=== PATIENT | male | born 1955 | race Caucasian/White ===

== ENCOUNTER 2022-07-12 19:38 | Emergency (ER) | payer OTHER, SELFPAY ==
[2022-07-12 19:50] VITALS: BP 156/70; PULSE 77; RESP 18; TEMP 36.2; O2SAT 95
--- NOTE | 2022-07-12 20:38 | DI.US.S_ITS ---
PROCEDURE: US PERIPH VENOUS LOW EXTREM RT INDICATIONS: SWELLING TECHNIQUE: Real-time imaging, as well as color and pulse Doppler interrogation, were performed of the lower extremity deep veins from the inguinal ligament to the popliteal fossa. COMPARISON: None. FINDINGS: The common femoral, femoral and popliteal veins are normally compressible, and free of intraluminal thrombus. Color and pulse Doppler demonstrate normal phasic intraluminal flow. There is normal augmentation response to distal compression maneuver. There are enlarged right inguinal lymph nodes measuring up to 1.1 cm in short axis with preserved fatty elena. Findings are nonspecific but likely reactive. IMPRESSION: 1. No evidence of deep venous thrombosis in the right lower extremity. Dictated by: Bala Ceja M.D. on 07/12/2022 at 23:47 Approved by: Bala Ceja M.D. on 07/12/2022 at 23:48
--- NOTE | 2022-07-12 20:55 | ED.SKABFB ---
HPI - Skin/Abscess/Foreign Bdy General Chief complaint: Skin/Abscess/Foreign Body Stated complaint: RIGHT LEG CELLULITIS Time Seen by Provider: 07/12/22 20:50 Source: patient Mode of arrival: Ambulatory Limitations: no limitations History of Present Illness HPI narrative: Patient drove himself here. Once re-evaluation of his right leg. He was wondering if there was a blood clot in there. He was seen at walk-in clinic [facility] 4 days ago and placed on Keflex. He takes it 4 times a day. He states the redness has improved a lot. The swelling has come down. The pain has improved. He is never had this before. He has brown discoloration to his both legs which are not new. That is chronic. No previous history of cellulitis. Denies any diabetes. No injury to skin. No blood clots in legs or lungs in the past. No chest pain or dyspnea. No palpitations. Patient in no distress. Related Data Home Medications Medication Instructions Recorded Confirmed HYDROCHLOROTHIAZIDE (Hydrodiuril / 25 mg PO QDAY ##0 04/15/10 Hctz) LISINOPRIL (Zestril / Prinivil) 20 mg PO QDAY ##0 04/15/10 Allergies Allergy/AdvReac Type Severity Reaction Status Date / Time INGREDIENT: NKDA - NO KNOWN Allergy Unknown Uncoded 12/24/17 11:48 DRUG ALLERGIES Review of Systems Review of Systems Narrative: GENERAL: Denies chills, fatigue, malaise, fever, sweats. HEENT: Denies sinus pain, ear pain, sore throat RESPIRATORY: Denies dyspnea, cough CARDIOVASCULAR: Denies chest pain, palpitations GASTROINTESTINAL: Denies nausea, vomiting, abdominal pain : Denies dysuria, frequency, hematuria MUSCULOSKELETAL: denies muscle or bony pain SKIN: Denies rash, skin lesions, positive skin color change NEUROLOGIC: Denies weakness, numbness ROS Unobtainable: All systems reviewed & are unremarkable except as noted in HPI and below Patient History Social History Smoking Status: Current every day smoker Smoking Status: Current every day smoker alcohol intake frequency: a few times a month Substance Use Type: heroin Exam Narrative Exam Narrative: GENERAL: in no distress, not toxic not dyspneic HEAD: Normocephalic. EYES: Pupils equal round No scleral icterus. ENT: Mucous membranes moist. NECK: Trachea midline. CARDIOVASCULAR: Regular rate and rhythm without murmurs RESPIRATORY: Clear to auscultation. Breath sounds equal bilaterally. No wheezes, rales, or rhonchi. EXTREMITIES: No gross deformities. Examination right lower extremity. Knee to toes exposed. Foot warm soft and pink strong pedal pulse. There is diffuse edema of the calf and leg. There is light erythema with mild tenderness to the anterior and posterior calf. Inked margins were drawn yesterday. No redness has extended past the inked margins. Strong pedal pulse light touch intact to foot and toes. No necrosis no necrotic tissue. No ulcerations. No palpable masses or abscess. No palpable cords. BACK: No flank tenderness. NEURO: AOx4. SKIN: Warm and dry PSYCH: Not anxious, is cooperative Initial Vital Signs Initial Vital Signs: Vital Signs Temperature 97.2 F L 07/12/22 19:50 Pulse Rate 77 07/12/22 19:50 Respiratory Rate 18 07/12/22 19:50 Blood Pressure 156/70 H 07/12/22 19:50 Pulse Oximetry 95 07/12/22 19:50 Oxygen Delivery Method 07/12/22 19:50 Course Course Course Narrative: No new issues during course of stay Orders Ordered: ED Orders 07/12/22 20:38 US periph venous low extrem rt Stat Reevaluation(s) Reevaluation #1: Reviewed with patient, agrees no blood work indicated this time. He has no fever. His cellulitis is improving with Keflex. No changes in his medications at this time. Time: 00:06 Vital Signs Vital signs: Vital Signs - 8 hr 07/12/22 19:50 07/12/22 23:59 Temperature 97.2 F L Pulse Rate 77 66 Respiratory Rate 18 Blood Pressure 156/70 H 169/79 H Pulse Oximetry 95 100 Oxygen Delivery Method Room Air Room Air MDM - Skin/Abscess/Foreign Bdy Differential Diagnosis Differential diagnosis: Likely abscess of skin or subcutaneous tissue, cellulitis and other (DVT/SVT) Imaging Data US - DVT: Radiologist's Impression: [address] [address] Ultrasound Report Signed Patient: Chicho Crowley MR#: [id number] : 1955 Acct:[id number] Age/Sex: 66 / M Date of Service: 07/12/22 Loc: ED Accession Number: [id number] ?? Procedure: US periph venous low extrem rt Ordering Provider: Bradley Britton MD PROCEDURE:? US PERIPH VENOUS LOW EXTREM RT ? INDICATIONS:? SWELLING ? TECHNIQUE:? Real-time imaging, as well as color and pulse Doppler interrogation, were performed of the lower extremity deep veins from the inguinal ligament to the popliteal fossa.? ? COMPARISON:? None. ? FINDINGS:? The common femoral, femoral and popliteal veins are normally compressible, and free of intraluminal thrombus.? Color and pulse Doppler demonstrate normal phasic intraluminal flow.? There is normal augmentation response to distal compression maneuver. ? ? There are enlarged right inguinal lymph nodes measuring up to 1.1 cm in short axis with preserved fatty elena.? Findings are nonspecific but likely reactive.? ? IMPRESSION:? ? 1.? No evidence of deep venous thrombosis in the right lower extremity. ? ? Dictated by: Bala Ceja M.D. on 07/12/2022 at 23:47 ? ? Approved by: Bala Ceja M.D. on 07/12/2022 at 23:48 ? MDM Narrative Medical decision making narrative: Appropriate for discharge home. Exam reassuring. Ultrasound reassuring. Patient is improving with Keflex. Appropriate to continue this medication. No changes needed. No blood work indicated. Return precautions reviewed with him. He desires discharge home. Pain controlled at the time of discharge. Discharge Plan Departure Patient Disposition: Home Clinical Impression: Cellulitis Instructions: DI for Cellulitis -- Adult Activity Restrictions/Additional Instructions: Return if worse if any questions or concerns. Please to continue and complete the antibiotics that were prescribed to you earlier this week. See your family doctor this upcoming week for re-evaluation. Return if worse if any questions or concerns. Call provided primary care referral phone number to establish family doctor. Call [phone] Prescriptions: No Action HYDROCHLOROTHIAZIDE (Hydrodiuril / Hctz) 25 mg PO QDAY Qty: 0 LISINOPRIL (Zestril / Prinivil) 20 mg PO QDAY Qty: 0 Visit Report Forms: Patient Portal/API
[2022-07-12 23:59] VITALS: BP 169/79; PULSE 66; O2SAT 100
== END 2022-07-13 00:10 | disposition home or self-care (01) ==
PROVIDERS: Emergency Provider Emergency Medicine
DX: L03.115 Cellulitis of right lower limb (principal)
CPT/HCPCS: 93971; 99283

== ENCOUNTER 2024-06-30 04:53 | Emergency (ER) | payer OTHER, SELFPAY ==
[2024-06-30 05:03] VITALS: BP 204/98; PULSE 100; RESP 20; TEMP 36.9; O2SAT 98; BMI 21.5
--- NOTE | 2024-06-30 05:13 | ED.SKABFB ---
HPI - Skin/Abscess/Foreign Bdy General Chief complaint: Skin/Abscess/Foreign Body Stated complaint: cellilitus on rt calf Time Seen by Provider: 06/30/24 04:58 Source: patient Mode of arrival: Ambulatory History of Present Illness HPI narrative: 68-year-old male who is here for evaluation of a infection on the back of his right calf. He was had an infection in this area in the past. He states he has been on antibiotics and it did seem to help the area but did not particularly think that it completely resolved. Over the past couple days he was noticed increased redness and drainage from the area. Is not currently on antibiotics. Has no fevers. Related Data Home Medications Medication Instructions Recorded Confirmed HYDROCHLOROTHIAZIDE (Hydrodiuril / 25 mg PO QDAY ##0 04/15/10 Hctz) LISINOPRIL (Zestril / Prinivil) 20 mg PO QDAY ##0 04/15/10 Previous Rx's Medication Instructions Recorded cephalexin 500 mg capsule 500 mg PO QID 7 days #28 caps 06/30/24 Allergies Allergy/AdvReac Type Severity Reaction Status Date / Time INGREDIENT: NKDA - NO KNOWN Allergy Unknown Uncoded 12/24/17 11:48 DRUG ALLERGIES Review of Systems Constitutional Constitutional: Reports as per HPI Integumentary/Breasts Skin/Breast: Reports system reviewed and no additional complaints, except as documented Patient History Social History Smoking Status: Current every day smoker Smoking Status: Current every day smoker alcohol intake frequency: a few times a month Substance Use Type: heroin Exam Initial Vital Signs Initial Vital Signs: Vital Signs Temperature 98.5 F 06/30/24 05:03 Pulse Rate 100 H 06/30/24 05:03 Respiratory Rate 20 06/30/24 05:03 Blood Pressure 204/98 H 06/30/24 05:03 Pulse Oximetry 98 06/30/24 05:03 Oxygen Delivery Method Room Air 06/30/24 05:03 Const General: cooperative and comfortable Skin Other: Area of ulceration in the posterior aspect of the right calf muscle. Minimal surrounding erythema. No ulceration fell. Extrem Other: Patient was chronic venous stasis changes to bilateral lower extremities with dry skin. Course Orders Ordered: ED Orders 06/30/24 05:13 Wound Culture and Gram Stain Stat Discontinued Medications Cephalexin HCl (Cephalexin 250 Mg Capsule) 500 mg PO NOW ONE Stop: 06/30/24 05:14 Last Admin: 06/30/24 05:17 Dose: 500 mg Vital Signs Vital signs: Vital Signs - 8 hr 06/30/24 05:03 Temperature 98.5 F Pulse Rate 100 H Respiratory Rate 20 Blood Pressure 204/98 H Pulse Oximetry 98 Oxygen Delivery Method Room Air MDM - Skin/Abscess/Foreign Bdy MDM Narrative Medical decision making narrative: Nontoxic appearing. The area of ulceration was cultured however we will start him on antibiotics. First dose was given here in the ER and a prescription was sent to the pharmacy of his choice. No deep abscess noted. Discharge home with return precautions. Patient expressed understanding and agreement. Discharge Plan Departure Patient Disposition: Home Clinical Impression: Cellulitis Instructions: DI for Cellulitis -- Adult Activity Restrictions/Additional Instructions: We did culture of the wound today and we will contact you if we need to change any antibiotics based on this. A prescription for antibiotics was sent to [facility] per your request. Return to the emergency department for new symptoms. Prescriptions: New cephalexin 500 mg capsule 500 mg PO QID 7 Days Qty: 28 0RF No Action HYDROCHLOROTHIAZIDE (Hydrodiuril / Hctz) 25 mg PO QDAY Qty: 0 LISINOPRIL (Zestril / Prinivil) 20 mg PO QDAY Qty: 0 Referrals: Zora Bonilla ARNP [Primary Care Provider] - Stand Alone Forms: Patient Portal/API
[2024-06-30] MEDS: cephALEXin 250 MG CAPSULE 500 MG PO (05:17)
== END 2024-06-30 05:19 | disposition home or self-care (01) ==
PROVIDERS: Emergency Provider Emergency Medicine; PCP Nurse Practitioner
DX: L03.115 Cellulitis of right lower limb (principal)
CPT/HCPCS: 87070; 87077; 87147; 87205; 99283

== ENCOUNTER 2024-08-10 22:58 | Emergency (ER) | payer OTHER, SELFPAY ==
[2024-08-10 23:04] VITALS: O2SAT 99
[2024-08-10 23:05] VITALS: BP 213/100; PULSE 93; O2SAT 99
[2024-08-10 23:06] VITALS: BP 189/83; PULSE 94; O2SAT 99
--- NOTE | 2024-08-10 23:06 | ED.MALEGU ---
HPI - Male Genitourinary General Chief complaint: Urogenital-Male Stated complaint: Blood in urine Time Seen by Provider: 08/10/24 23:05 Source: patient, RN notes reviewed and old records reviewed Mode of arrival: Ambulatory Limitations: no limitations History of Present Illness HPI Narrative: 68-year-old male history of hypertension who presents with complaint of right flank pain for the past several days does not really come around to the front. He states it has actually been improving a little bit but this evening noticed some blood in his urine. He has had some dysuria and frequency denies any incontinence. Denies any fevers, no nausea or vomiting. Denies any chest pain or shortness of breath. Denies any anterior abdominal pain. States no issues with bowel movements. Patient states he did have a recent hospitalization at [facility] for sepsis secondary to Streptococcus pyogenes cellulitis of lower extremity, polysubstance abuse positive for cocaine, heroin fentanyl and methamphetamine acute kidney injury with a creatinine that was 1.7 He states he was altered and did have a catheter placed he does not remember it being placed but it was removed prior to discharge. Current medications are mirtazapine, losartan, metoprolol, hydrochlorothiazide and penicillin VK. States tonsillectomies is only prior surgery. Does use tobacco daily, states no regular alcohol, denies recreational drugs. Denies any drug allergies. Has a primary care follow up on August 18 to establish care. Patient states his flank pain had improved or is improving but his hematuria this evening was what prompted him to come be evaluated. Related Data Home Medications Medication Instructions Recorded Confirmed HYDROCHLOROTHIAZIDE (Hydrodiuril / 25 mg PO QDAY ##0 04/15/10 Hctz) LISINOPRIL (Zestril / Prinivil) 20 mg PO QDAY ##0 04/15/10 Allergies Allergy/AdvReac Type Severity Reaction Status Date / Time No Known Drug Allergies Allergy Verified 08/10/24 23:11 Review of Systems Review of Systems ROS Unobtainable: All systems reviewed & are unremarkable except as noted in HPI and below Patient History Social History Smoking Status: Current every day smoker Smoking Status: Current every day smoker alcohol intake frequency: a few times a month Substance Use Type: heroin Exam Narrative Exam Narrative: GENERAL: Alert and oriented x three, mild distress HEENT: Head normocephalic, atraumatic, EOMI, pupils reactive, face symmetric, moist mucous membranes, poor dentition. NECK: Supple, full range of motion CARDIOVASCULAR: Regular rate and rhythm without murmurs, rubs or gallops. RESPIRATORY: Breath sounds equal bilaterally, no wheezes rales or rhonchi. ABDOMEN: Soft, nontender. Nondistended. Normoactive bowel sounds all 4 quadrants. No guarding or rebound, rigidity, no mass : No CVA tenderness EXTREMITIES: Normal range of motion, no clubbing or edema. Neurovascularly intact NEUROLOGICAL: Cranial nerves II through XII grossly intact. Moving all extremities SKIN: Warm, dry, no petechiae, no rashes or lesions. Initial Vital Signs Initial Vital Signs: Vital Signs Pulse Oximetry 99 08/10/24 23:04 Course Orders Ordered: ED Orders 08/10/24 23:10 CBC Auto Diff [Complete Blood Count AUTO DIFF] Stat CMP [Comprehensive Metabolic Panel] Stat Lipase Stat 08/10/24 23:12 CT kidney ureter bladder (KUB) Stat 08/11/24 02:45 UA Complete [Urinalysis and Microscopic] Stat Urine Culture Stat Urine Drug Screen, Rapid Stat Vital Signs Vital signs: Vital Signs - 8 hr 08/10/24 23:04 08/10/24 23:05 08/10/24 23:05 Temperature Pulse Rate 93 H Respiratory Rate Blood Pressure 213/100 H Pulse Oximetry 99 99 Oxygen Delivery Method 08/10/24 23:06 08/10/24 23:06 08/10/24 23:07 Temperature 98.1 F Pulse Rate 94 H 97 H Respiratory Rate 19 Blood Pressure 189/83 H 189/83 H Pulse Oximetry 99 98 Oxygen Delivery Method Room Air 08/10/24 23:25 08/10/24 23:25 08/10/24 23:30 Temperature Pulse Rate 72 73 Respiratory Rate Blood Pressure 165/72 H Pulse Oximetry 99 98 Oxygen Delivery Method 08/10/24 23:30 08/11/24 00:00 08/11/24 00:00 Temperature Pulse Rate 67 Respiratory Rate Blood Pressure 145/67 H 143/67 H Pulse Oximetry 97 Oxygen Delivery Method 08/11/24 00:30 08/11/24 00:30 08/11/24 01:00 Temperature Pulse Rate 68 64 Respiratory Rate 18 Blood Pressure 197/86 H Pulse Oximetry 96 100 Oxygen Delivery Method 08/11/24 01:00 08/11/24 03:53 Temperature Pulse Rate 64 Respiratory Rate 18 20 Blood Pressure 155/68 H 146/74 H Pulse Oximetry 97 Oxygen Delivery Method Room Air MDM - Male Genitourinary Lab Data 08/10/24 23:10 08/10/24 23:10 Labs: Lab Results 08/10/24 08/11/24 08/11/24 Range/Units 23:10 02:45 02:45 WBC 9.4 (4.5-11.0) X10^3/uL RBC 3.46 L (4.5-5.9) X10^6/uL Hgb 9.0 L (13.5-17.5) g/dL Hct 27.7 L (41-53) % MCV 80.0 (80-100) fL MCH 26.0 (26-34) PG MCHC 32.5 (30-36) % RDW 16.5 H (11.6-14.8) % Plt Count 295 (150-400) X10^3/uL Neut % (Auto) 68.8 (50-75) % Lymph % (Auto) 20.5 L (25-40) % [place] % (Auto) 6.9 (3-14) % Eos % (Auto) 2.5 (2-4) % Baso % (Auto) 1.3 (0-2) % Neut # (Auto) 6500 (8756-5860) /uL Lymph # (Auto) 1900 (6496-2374) /uL [place] # (Auto) 600 (0-900) /uL Eos # (Auto) 200 (0-450) /uL Baso # (Auto) 100 (0-100) /uL Sodium 136 L (137-145) mmol/L Potassium 4.0 (3.4-5.1) mmol/L Chloride 103 (98-107) mmol/L Carbon Dioxide 31 (22-32) mmol/L BUN 38 H (9-20) mg/dL Creatinine 2.15 H (0.66-1.25) mg/dL Estimated GFR 32 L (>60) mL/min BUN/Creatinine Ratio 17.7 (6-22) Glucose 139 H (80-110) mg/dL Calcium 8.2 L (8.4-10.2) mg/dL Total Bilirubin 0.2 (0.2-1.3) mg/dL AST 33 (17-59) IU/L ALT 19 (<50) IU/L Alkaline Phosphatase 93 (38-126) U/L Total Protein 7.0 (6.3-8.2) g/dL Albumin 3.2 L (3.5-5.0) g/dL Globulin 3.8 (1.7-4.1) g/dL Albumin/Globulin Ratio 0.8 L (1.0-2.8) Lipase 93 (23-300) U/L Urine Color Red Urine Appearance Cloudy Urine pH 6.5 Normal (4.5-8.0) Ur Specific [place] 1.020 (1.000-1.035) Urine Protein 3+ H (Negative) Urine Glucose (UA) Negative (Negative) g/dL Urine Ketones Negative (NEGATIVE) Urine Occult Blood 3+ H (Negative) Urine Nitrate Negative (Negative) Urine Bilirubin Negative (NEGATIVE) Urine Urobilinogen 0.2 (0.2) E.U./dL Ur Leukocyte Esterase Negative (NEGATIVE) Urine RBC >100/hpf H (0-5/HPF) Urine WBC 1-5/hpf (0-5/HPF) Ur Squamous Epith Cells None seen (0-5/HPF) Urine Bacteria None seen (None) Ur Culture Indicated? Cult not indicated Vol Urine Centrifuged 10ml (unspun) A U Opiates 300ng/mL cut Positive H (Negative) Ur Oxycodone Screen Negative (Negative) Urine Methadone Screen Negative (Negative) Ur Barbiturates Screen Negative (Negative) U Tricyclic Antidepress Negative (Negative) Ur Phencyclidine Scrn Negative (Negative) Ur Amphetamines Screen Positive H (Negative) U Methamphetamines Scrn Positive H (Negative) Ur MDMA Scrn (Ecstasy) Negative (Negative) U Benzodiazepines Scrn Negative (Negative) Urine Cocaine Screen Negative (Negative) U Marijuana (THC) Screen Negative (Negative) Urine Specific [place] Normal (Normal) Ur Creatinine Normal (Normal) Imaging Data CT scan - abdomen/pelvis: Radiologist's Impression: Chicho Crowley??68??M??1955 ? Allergy/Adv: No Known Drug Allergies Close Abdomen/Pelvis CT (Signed) Shannon Farfan - 08/10/24 Vascular Ultrasound (Signed) Ceja,Bala - 07/12/22 Launch?[place] [id number] CT Scan Report Signed Patient: Chicho Crowley MR#: [id number] : 1955 Acct:[id number] Age/Sex: 68 / M Date of Service: 08/10/24 Loc: ED Accession Number: [id number] Procedure: CT kidney ureter bladder (KUB) Ordering Provider: Terra Wallace D.O. PROCEDURE: CT KIDNEY URETER BLADDER (KUB) INDICATIONS: r flank pain improving, new hematuria TECHNIQUE: Axial sections were acquired from the lung bases to the pubic symphysis. Coronal and sagittal reformats were performed. For radiation dose reduction, the following was used: automated exposure control, adjustment of mA and/or kV according to patient size. COMPARISON: None. FINDINGS: Image quality: Diagnostic. Lower Chest: No significant findings. URINARY: Right Kidney: Simple cyst. No renal stone. No obstruction. Right Ureter: No hydroureter. Left Kidney: Simple cyst. Punctate inferior calcification versus artifact. No obstruction Left Ureter: No hydroureter. Bladder: Normal wall thickness. No stones. ABDOMEN: Liver: Simple cysts. Gallbladder: No radiopaque gallstones or wall thickening. Biliary ducts: No biliary dilation. Pancreas: No ductal dilation. Spleen: Size is within normal limits. Adrenal Glands: No adrenal nodules. Stomach and Bowel: Normal colonic caliber, without significant wall thickening. Moderate stool obstruction. Scattered diverticula. Peritoneum: No abnormal intraperitoneal fluid. No free air. Ventral Wall: No hernia. Abdominal Nodes: No enlarged retroperitoneal or mesenteric lymph nodes. Vessels: Aorta and inferior vena cava are normal in size. PELVIS: Pelvic Organs: Unremarkable. Pelvic Nodes: Unremarkable. Miscellaneous: Fat containing bilateral inguinal hernias are seen. Bones: Unremarkable. IMPRESSION: No obstructing stones or hydronephrosis. Diverticulosis. Dictated by: Shannon Farfan M.D. on 08/10/2024 at 23:44 Approved by: Shannon Farfan M.D. on 08/10/2024 at 23:51 MDM Narrative Medical decision making narrative: 68-year-old male with right flank pain which has been improving over the past several days complaint of hematuria dysuria and urgency. Patient is slightly hypertensive overall well-appearing he does note recent hospitalization for sepsis sounds like secondary to cellulitis from his description but did have a Cabrera catheter in place it was moved prior to discharge. I suspect potential kidney stone versus UTI versus other. Patient is currently on antibiotics taking penicillin VK Labs white count of 9.4 hemoglobin of 9 platelets of 295. Sodium 136 potassium of 4 chloride of 103 CO2 of 31 BUN 38 creatinine of 2.15 glucose of 139 LFTs are negative Urine positive for protein, occult blood, greater than 100 red cells, 1-5 white cells no squamous no bacteria. We will send for urine culture. CT KUB shows simple renal cyst, fat containing bilateral inguinal hernias no obstructing stones or hydro. Diverticulosis Patient did require urine he was not retaining urine but did not have the urge to pee and after being here for some time because he urinated just before being seen decision was made to obtain a catheter specimen he would 130 mL in his bladder prior to catheterization. Spoke with urology, Dr. Toscano other happy to follow with patient patient is to call. They would recommend he follow up with primary to follow his renal function to evaluate for any other new causes. Reviewed findings with the patient we will have him hold his hydrochlorothiazide in the meantime, follow up with primary care as well for recheck of his renal function, patient's creatinine was 1.9 his recent hospitalization. Could be a component of dehydration. Patient has appointment scheduled on 08/18 with primary care. Discussed return precautions all questions answered. Discharge Plan Departure Patient Disposition: Home Clinical Impression: Hematuria, Renal cyst, Chronic kidney disease (CKD) Instructions: DI for Hematuria Activity Restrictions/Additional Instructions: Follow up with Urology, please call to set up a follow up appointment. They may need to perform cystoscopy to evaluate for source of your bleeding. Your imaging today shows a simple renal cyst but no other changes to the kidneys or bladder. Your renal function is slightly worse than it was when you were hospitalized recently he should follow up with primary care for rechecked. I would ask you to hold your hydrochlorothiazide until you see your physician. Your urine showed blood but no clear signs of infection, urine culture was sent this is currently pending and takes 48-72 hours to result. If positive you would be contacted to start an antibiotic. Please return for fevers, new or worsening abdominal back or flank pain, inability to urinate, increasing amounts bleeding, lightheadedness or passing out or other new or concerning changes. Prescriptions: No Action HYDROCHLOROTHIAZIDE (Hydrodiuril / Hctz) 25 mg PO QDAY Qty: 0 LISINOPRIL (Zestril / Prinivil) 20 mg PO QDAY Qty: 0 Referrals: Zora Bonilla ARNP [Primary Care Provider] - Bradley Toscano MD [Physician] - Stand Alone Forms: Patient Portal/API/Survey
[2024-08-10 23:07] VITALS: BP 189/83; PULSE 97; RESP 19; TEMP 36.7; O2SAT 98; BMI 22.1
--- NOTE | 2024-08-10 23:12 | DI.CT.S_ITS ---
PROCEDURE: CT KIDNEY URETER BLADDER (KUB) INDICATIONS: r flank pain improving, new hematuria TECHNIQUE: Axial sections were acquired from the lung bases to the pubic symphysis. Coronal and sagittal reformats were performed. For radiation dose reduction, the following was used: automated exposure control, adjustment of mA and/or kV according to patient size. COMPARISON: None. FINDINGS: Image quality: Diagnostic. Lower Chest: No significant findings. URINARY: Right Kidney: Simple cyst. No renal stone. No obstruction. Right Ureter: No hydroureter. Left Kidney: Simple cyst. Punctate inferior calcification versus artifact. No obstruction Left Ureter: No hydroureter. Bladder: Normal wall thickness. No stones. ABDOMEN: Liver: Simple cysts. Gallbladder: No radiopaque gallstones or wall thickening. Biliary ducts: No biliary dilation. Pancreas: No ductal dilation. Spleen: Size is within normal limits. Adrenal Glands: No adrenal nodules. Stomach and Bowel: Normal colonic caliber, without significant wall thickening. Moderate stool obstruction. Scattered diverticula. Peritoneum: No abnormal intraperitoneal fluid. No free air. Ventral Wall: No hernia. Abdominal Nodes: No enlarged retroperitoneal or mesenteric lymph nodes. Vessels: Aorta and inferior vena cava are normal in size. PELVIS: Pelvic Organs: Unremarkable. Pelvic Nodes: Unremarkable. Miscellaneous: Fat containing bilateral inguinal hernias are seen. Bones: Unremarkable. IMPRESSION: No obstructing stones or hydronephrosis. Diverticulosis. Dictated by: Shannon Farfan M.D. on 08/10/2024 at 23:44 Approved by: Shannon Farfan M.D. on 08/10/2024 at 23:51
--- NOTE | 2024-08-10 23:16 | PC.NURSE ---
Pt to imaging via stretcher with tech
[2024-08-10 23:25] VITALS: BP 165/72; PULSE 72; O2SAT 99
[2024-08-10 23:26] LABS: Add Manual Diff / Slide Review NO; Basophils Absolute Auto 100 /uL (0-100); Basophils Percent Auto 1.3 % (0-2); Eosinophils Absolute Auto 200 /uL (0-450); Eosinophils Percent Auto 2.5 % (2-4); Hematocrit 27.7 % (41-53); Lymphocytes Absolute Auto 1900 /uL (1100-4500); Lymphocytes Percent Auto 20.5 % (25-40); Mean Corpuscular HGB Conc 32.5 % (30-36); Monocytes Absolute Auto 600 /uL (0-900); Monocytes Percent Auto 6.9 % (3-14); Neutrophils Absolute Auto 6500 /uL (1500-7000); Neutrophils Percent Auto 68.8 % (50-75); Platelet Count 295 X10^3/uL (150-400); Red Blood Cell Count 3.46 X10^6/uL (4.5-5.9); Red Cell Distribution Width 16.5 % (11.6-14.8); White Blood Cell Count 9.4 X10^3/uL (4.5-11.0)
[2024-08-10 23:30] VITALS: BP 145/67; PULSE 73; O2SAT 98
[2024-08-10 23:37] LABS: Alanine Aminotransferase 19 IU/L (<50); Albumin 3.2 g/dL (3.5-5.0); Albumin Globulin Ratio 0.8 (1.0-2.8); Alkaline Phosphatase 93 U/L (38-126); Aspartate Aminotransferase 33 IU/L (17-59); BUN Creatinine Ratio 17.7 (6-22); Bilirubin Total 0.2 mg/dL (0.2-1.3); Blood Urea Nitrogen 38 mg/dL (9-20); Calcium 8.2 mg/dL (8.4-10.2); Carbon Dioxide 31 mmol/L (22-32); Chloride 103 mmol/L (98-107); Estimated Glomerular Filt Rate 32 mL/min (>60); Globulin 3.8 g/dL (1.7-4.1); Glucose 139 mg/dL (80-110); HEMOLYSIS < 15 (0-50); Lipase 93 U/L (23-300); Sodium 136 mmol/L (137-145)
[2024-08-11] VITALS: BP 143/67; PULSE 67; O2SAT 97
[2024-08-11 00:30] VITALS: BP 197/86; PULSE 68; RESP 18; O2SAT 96
[2024-08-11 01:00] VITALS: BP 155/68; PULSE 64; RESP 18; O2SAT 100
--- NOTE | 2024-08-11 01:27 | PC.NURSE ---
Attempted getting urine sample from Pt. Pt difficult to arouse growled at tech. no sample given. Provider and Rn aware
[2024-08-11 03:03] LABS: Appearance Urine UA CLOUDY; Bilirubin Urine UA NEGATIVE (NEGATIVE); Color Urine UA RED; Glucose Urine UA NEGATIVE (Negative); Ketones Urine UA NEGATIVE (NEGATIVE); Leukocyte Esterase Urine UA NEGATIVE (NEGATIVE); Nitrite Urine UA NEGATIVE (Negative); Occult Blood Urine UA 3+ (Negative); Protein Urine UA 3+ (Negative); Urobilinogen Urine UA 0.2 E.U./dL (0.2); pH Urine UA 6.5 (4.5-8.0)
[2024-08-11 03:06] LABS: Bacteria Urine None Seen; RBC Urine >100/HPF (0-5/HPF); Squamous Epithelial Cell Urine None Seen (0-5/HPF); WBC Urine 1-5/HPF (0-5/HPF)
[2024-08-11 03:07] LABS: Culture Indicated Urine Cult Not Indicated; Urine Volume 10mL (unspun)
[2024-08-11 03:08] LABS: Ur Creatinine Normal (Normal); Ur Specific Gravity Normal (Normal); Urine THC Negative (Negative); Urine pH Normal (Normal)
[2024-08-11 03:09] LABS: Urine Amphetamines Positive (Negative); Urine Barbiturates Negative (Negative); Urine Benzodiazepines Negative (Negative); Urine Cocaine Negative (Negative); Urine MDMA Negative (Negative); Urine Methadone Negative (Negative); Urine Methamphetamines Positive (Negative); Urine Opiates Positive (Negative); Urine Oxycodone Negative (Negative); Urine Phencyclidine Negative (Negative); Urine Tricyclic Antidepressant Negative (Negative)
[2024-08-11 03:53] VITALS: BP 146/74; PULSE 64; RESP 20; O2SAT 97
== END 2024-08-11 03:53 | disposition home or self-care (01) ==
PROVIDERS: Emergency Provider Emergency Medicine; PCP Nurse Practitioner
DX: N18.9 Chronic kidney disease, unspecified (principal); N28.1 Cyst of kidney, acquired; R31.9 Hematuria, unspecified; R30.0 Dysuria; R10.9 Unspecified abdominal pain
CPT/HCPCS: 51798; 74176; 80053; 80305; 81001; 83690; 85025; 87086; 99282; 99284

== ENCOUNTER 2024-09-06 03:53 | Emergency (ER) | payer OTHER, SELFPAY ==
[2024-09-06] VITALS (7 sets, daily range): BP systolic 129–152; BP diastolic 67–82; PULSE 76–96; RESP 16–18; TEMP 37.4; O2SAT 97–98; BMI 20.5
--- NOTE | 2024-09-06 04:33 | ED.FALL ---
HPI - Fall General Chief Complaint: Fall Stated Complaint: fall bleeding from left side of his head Time Seen by Provider: 09/06/24 04:18 Source: patient Mode of arrival: Ambulatory History of Present Illness HPI Narrative: Patient is a 68-year-old male history of hypertension on aspirin presenting today with left ear problem. He reports that there is blood coming out of it. He says the some point he fell although I do not see any head trauma. He says that he was on the couch he rolled over hard to tell exactly what happened. He denies any headache nausea no weakness. He is not very forthcoming with information he has no weakness. He is sleepy but definitely answers questions and follows commands Related Data Home Medications Medication Instructions Recorded Confirmed HYDROCHLOROTHIAZIDE (Hydrodiuril / 25 mg PO QDAY ##0 04/15/10 Hctz) LISINOPRIL (Zestril / Prinivil) 20 mg PO QDAY ##0 04/15/10 Allergies Allergy/AdvReac Type Severity Reaction Status Date / Time No Known Drug Allergies Allergy Verified 08/10/24 23:11 Patient History Social History Smoking Status: Current every day smoker Smoking Status: Current every day smoker alcohol intake frequency: a few times a month Exam Initial Vital Signs Initial Vital Signs: Vital Signs Temperature 99.3 F 09/06/24 04:14 Pulse Rate 83 09/06/24 04:14 Respiratory Rate 18 09/06/24 04:14 Blood Pressure 133/67 09/06/24 04:14 Pulse Oximetry 97 09/06/24 04:14 Oxygen Delivery Method Room Air 09/06/24 04:14 GENERAL: 68year old patient appears stated age. Well-developed patient, in mild distress. HEAD: Atraumatic. Normocephalic. EYES: Pupils equal round and reactive. Extraocular motions intact. No scleral icterus. No injection or drainage. EAR: Left ear there is gross blood in the canal I do not see any sort of external laceration it has been cleared off I do not see any sort of significant laceration or scratch internally. Tympanic membrane appears intact almost looks like a hemotympanum NECK: Trachea midline. Non tender CARDIOVASCULAR: Regular rate and rhythm without murmurs, gallops, or rubs. RESPIRATORY: Clear to auscultation. Breath sounds equal bilaterally. No wheezes, rales, or rhonchi. GASTROINTESTINAL: Abdomen soft, non-tender, nondistended. EXTREMITIES: No edema or joint tenderness. NEURO: AOx3. SKIN: No rash or erythema of visible areas Course Orders Ordered: ED Orders 09/06/24 04:42 CT head/brain wo con Stat Vital Signs Vital signs: Vital Signs - 8 hr 09/06/24 04:14 09/06/24 04:15 09/06/24 04:15 Temperature 99.3 F Pulse Rate 83 93 H Respiratory Rate 18 Blood Pressure 133/67 133/67 Pulse Oximetry 97 97 Oxygen Delivery Method Room Air 09/06/24 04:30 09/06/24 04:30 09/06/24 05:01 Temperature Pulse Rate 92 H 96 H Respiratory Rate 18 18 Blood Pressure 146/74 H Pulse Oximetry 97 97 Oxygen Delivery Method 09/06/24 05:01 Temperature Pulse Rate Respiratory Rate Blood Pressure 143/82 H Pulse Oximetry Oxygen Delivery Method MDM - Fall Imaging Data CT scan - head: Radiologist's Impression: Preliminary report mild nonspecific periventricular and deep matter disease central cortical volume loss MDM Narrative Medical decision making narrative: Patient is 68-year-old male presents today with a blood coming from his left ear. He has a very poor historian he does wake up possible hemotympanum but he has no other flores sign raccoon eyes or sign of significant trauma. However CT was ordered and is fortunately negative. On exam I do not see any source of bleeding but I suspect he scraped he was canal somehow the blood is easily cleared with a Q-tip. Discharge Plan Departure Patient Disposition: Home Clinical Impression: Injury of left inner ear Activity Restrictions/Additional Instructions: *You have been diagnosed with left ear injury *What to do: At this time unclear exactly what happened CT is negative. *Continue to take medications as directed *Follow up with your primary care provider in 2-3 days or call [phone] *Return to ER if you should have any new, worsening or concerning symptoms Prescriptions: No Action HYDROCHLOROTHIAZIDE (Hydrodiuril / Hctz) 25 mg PO QDAY Qty: 0 LISINOPRIL (Zestril / Prinivil) 20 mg PO QDAY Qty: 0 Referrals: Zora Bonilla ARNP [Primary Care Provider] - Stand Alone Forms: Patient Portal/API/Survey
--- NOTE | 2024-09-06 04:42 | DI.CT.S_ITS ---
PROCEDURE: CT HEAD/BRAIN WO CON INDICATIONS: fall TECHNIQUE: Noncontrast 4.5 mm thick angled axial sections acquired from the foramen magnum to the vertex, with coronal and sagittal reformats. For radiation dose reduction, the following was used: automated exposure control, adjustment of mA and/or kV according to patient size. COMPARISON: None. FINDINGS: Image quality: Diagnostic. CSF spaces: Basal cisterns are patent. No extra-axial fluid collections. Ventricles are normal in size and shape. Brain: No midline shift. No intracranial masses or hemorrhage. No area of hypodensity in a large vascular distribution to suggest acute infarction. Periventricular hypodensity consistent with chronic microvascular ischemic change. Age-related parenchymal loss. Skull and face: Calvarium and visualized facial bones are intact, without suspicious lesions. Sinuses: Mild mucosal thickening at the ethmoid air cells and paranasal sinuses. Minimal mucosal thickening at a medial left mastoid air cell. There is cerumen in the left external auditory canal. IMPRESSION: No acute intracranial hemorrhage. Findings of chronic microvascular ischemic disease. This report is concordant with the overnight preliminary interpretation. Dictated by: Matthew Bender M.D. on 09/06/2024 at 8:08 Approved by: Matthew Bender M.D. on 09/06/2024 at 8:12
== END 2024-09-06 06:36 | disposition home or self-care (01) ==
PROVIDERS: Emergency Provider Emergency Medicine; PCP Nurse Practitioner
DX: S09.392A Other specified injury of left middle and inner ear, initial encounter (principal); W19.XXXA Unspecified fall, initial encounter
CPT/HCPCS: 70450; 99281; 99284

== ENCOUNTER 2024-12-29 11:52 | Emergency (ER) | payer OTHER, SELFPAY ==
[2024-12-29] VITALS (8 sets, daily range): BP systolic 192–229; BP diastolic 79–98; PULSE 70–95; RESP 14–23; TEMP 36.6; O2SAT 93–99
--- NOTE | 2024-12-29 12:14 | ED_ITS ---
HPI - Male Genitourinary General Chief complaint: Urogenital-Male Stated complaint: cath pain Time Seen by Provider: 12/29/24 12:14 History of Present Illness HPI Narrative: 69-year-old male with history of hypertension, drug abuse, bilateral lower extremity MRSA, frequent UTIs comes into the ED via EMS for evaluation of catheter issue. According to the patient he had a catheter placed due to the fact that he was seen at in outside hospital for ?unresponsiveness states that he does not know why the catheter was placed, social security assessor called [phone] due to the fact that he was having pain to his catheter and the bag was leaking. Patient is not complaining of any other symptoms at this time. Patient does have history of baseline slurred speech, this was informed to us by the social security assessor who checked on the patient at home. Related Data Home Medications Medication Instructions Recorded Confirmed HYDROCHLOROTHIAZIDE (Hydrodiuril / 25 mg PO QDAY ##0 04/15/10 Hctz) LISINOPRIL (Zestril / Prinivil) 20 mg PO QDAY ##0 04/15/10 Previous Rx's Medication Instructions Recorded cefuroxime axetil 500 mg tablet 500 mg PO BID 10 days #20 tabs 12/29/24 phenazopyridine 200 mg tablet 200 mg PO TID PRN pain 6 doses #6 12/29/24 (Pyridium) tabs Allergies Allergy/AdvReac Type Severity Reaction Status Date / Time lisinopril Allergy Verified 12/29/24 11:53 Review of Systems Review of Systems Narrative: General: Denies fever, chills, weight loss HEENT: Denies headache, eye drainage, eye irritation, head trauma, sore throat, voice change Cardiovascular: Denies any chest pain, palpitations, tachycardia Respiratory: Denies any shortness of breath, cough, wheeze, stridor GI/: Cabrera catheter pain, Denies any abdominal pain, nausea, vomiting, diarrhea, bright red blood per rectum, melanotic stools, urinary frequency, urinary retention, dysuria, hematuria MSK: Denies any joint pain, muscle pains, swelling Skin: Denies any rashes, lesions, discoloration Neuro: Denies any headache, lightheadedness, dizziness, fainting, weakness Psych: Denies SI/HI Patient History alcohol intake frequency: a few times a month Exam Narrative Exam Narrative: General: Cooperative, well-developed, not in acute distress HEENT: Normocephalic, atraumatic, PERRLA, normal sclera, eyelids normal Neck: Active full range of motion, atraumatic Chest: Normal to inspection, negative crepitus, no overlying erythema ecchymosis Respiratory: Normal respiratory effort, not in acute respiratory distress, cl ear to auscultation bilaterally negative cough, wheeze, tachypnea, rhonchi, rales Cardiology: Regular rate rhythm negative gallop, murmur, rubs GI/: No tenderness to palpation, soft, non rigid, normal to inspection, exam: Cabrera catheter in place draining urine MSK: Full active range of motion in all 4 extremities, atraumatic, no tenderness to palpation of any bony prominences Skin: No rashes or lesions noted Neuro: Patient with baseline slurred speech, is able to move all 4 extremities spontaneously, patient is at baseline Psych: Cooperative, negative suicidal or homicidal ideations Initial Vital Signs Initial Vital Signs: Vital Signs Temperature 97.9 F 12/29/24 11:58 Pulse Rate 81 12/29/24 11:58 Respiratory Rate 20 12/29/24 11:58 Pulse Oximetry 99 12/29/24 11:58 Oxygen Delivery Method Room Air 12/29/24 11:58 Course Orders Ordered: ED Orders 12/29/24 12:24 Urinalysis and Microscopic Stat Discontinued Medications Phenazopyridine HCl (Phenazopyridine 100 Mg Tablet) 200 mg PO NOW ONE Stop: 12/29/24 12:25 Vital Signs Vital signs: Vital Signs - 8 hr 12/29/24 11:58 Temperature 97.9 F Pulse Rate 81 Respiratory Rate 20 Pulse Oximetry 99 Oxygen Delivery Method Room Air MDM - Male Genitourinary Differential Diagnosis Differential diagnosis: Likely urinary tract infection and other (Cabrera catheter malfunction) MDM Narrative Medical decision making narrative: Patient is a 69-year-old male with a history of frequent UTIs, bilateral lower extremity MRSA, baseline slurred speech with a history of IV drug use presenting from home via EMS for evaluation of Cabrera catheter pain and leakage. Patient had Cabrera catheter placed at outside hospital after he was discharged for unresponsiveness. take away worker who checked out in on the patient is the 1 who called 911 after patient stating that he was having pain/discomfort to his Cabrera catheter, at time of evaluation patient said his baseline, only complaining of pain to his Cabrera catheter. Cabrera catheter was exchanged here in the emergency department, patient was given Pyridium with improvement of symptoms, we will send patient home on antibiotics for urinary tract infection, he was given strict return precautions and was instructed to follow up with his primary care doctor he verbalized understanding of this and agrees to being discharged home with outpatient follow up Discharge Plan Departure Patient Disposition: Home Clinical Impression: Cabrera catheter problem, Acute UTI Instructions: How to Care for Your Cabrera Catheter -- Male, DI for Urinary Tract Infection (UTI) Activity Restrictions/Additional Instructions: Please follow up with the primary care doctor and Urology Please read the discharge instructions sheet carefully and bring all papers to all doctor follow-up visits, as it may contain information that your doctor may want to see. Disease processes change and evolve, if your symptoms worsen or if you develop any new symptoms that are concerning to you please return for evaluation. Your evaluation today does not show any evidence of any life- threatening/serious illnesses requiring admission to the hospital or surgery. Please follow-up with your doctor for re-evaluation in approximately 1 day. Seek immediate medical attention for any worrisome symptoms. *If you do not have a primary care provider please contact the [facility] Resource line at [phone]. They will ask some questions about your medical history and help get you set up with a doctor in the community. Prescriptions: New cefuroxime axetil 500 mg tablet 500 mg PO BID 10 Days Qty: 20 0RF phenazopyridine [Pyridium] 200 mg tablet 200 mg PO TID PRN (Reason: pain) Qty: 6 0RF No Action HYDROCHLOROTHIAZIDE (Hydrodiuril / Hctz) 25 mg PO QDAY Qty: 0 LISINOPRIL (Zestril / Prinivil) 20 mg PO QDAY Qty: 0 Referrals: Dexter Najera DO [Physician] - (Patient with chronic UTIs with indwelling Cabrera catheter) Zora Bonilla ARNP [Primary Care Provider] - Stand Alone Forms: Patient Portal/API/Survey
[2024-12-29] MEDS: cefUROXime 250 MG TABLET 500 MG PO (13:06)
[2024-12-29] MEDS: PHENAZOPYRIDINE 100 MG TABLET 200 MG PO (13:07)
--- NOTE | 2024-12-29 13:10 | PC.NURSE ---
Pt hypertensive, physician aware, no new orders.
--- NOTE | 2024-12-29 14:42 | PC.NURSE ---
Physician at bedside, pt vomited post-narcan administration and aspirated. front edger, float RN, physician, RT and clay pigeon setter at bedside assisting patient. X-ray at bedside for chest film.
[2024-12-29 14:47] LABS: Appearance Urine UA CLEAR; Bilirubin Urine UA NEGATIVE (NEGATIVE); Color Urine UA YELLOW; Glucose Urine UA NEGATIVE (Negative); Ketones Urine UA 1+ (NEGATIVE); Leukocyte Esterase Urine UA TRACE (NEGATIVE); Nitrite Urine UA POSITIVE (Negative); Occult Blood Urine UA 3+ (Negative); Protein Urine UA 3+ (Negative); Specific Gravity Urine UA >=1.030 (1.000-1.035)
[2024-12-29 14:49] LABS: Urine Volume 10mL (spun)
[2024-12-29 14:50] LABS: Bacteria Urine Many (>30); Culture Indicated Urine Specimen Cultured; RBC Urine 30-100/HPF (0-5/HPF); Squamous Epithelial Cell Urine 1-5 /HPF (0-5/HPF); WBC Urine 10-30/HPF (0-5/HPF)
== END 2024-12-29 15:09 | disposition home or self-care (01) ==
PROVIDERS: Emergency Provider Student in an Organized Health Care Education/Training Program; PCP Nurse Practitioner
DX: N39.0 Urinary tract infection, site not specified (principal); T83.9XXA Unspecified complication of genitourinary prosthetic device, implant and graft, initial encounter; R41.0 Disorientation, unspecified
CPT/HCPCS: 81001; 87077; 87086; 87186; 99284